=== PATIENT | male | born 1985 | race Caucasian/White ===

== ENCOUNTER 2022-12-14 07:57 | Outpatient (CLI) | payer OTHER, SELFPAY ==
[2022-12-14 13:51] LABS: Microalbumin Urine 1 mg/dL
[2022-12-14 13:54] LABS: Creatinine Urine 240.7 mg/dL; Microalbumin Creatinine Ratio 0 mg/g (0-30)
[2022-12-14 15:19] LABS: Albumin* 4.3 g/dL (3.3-5.0)
[2022-12-14 15:20] LABS: Chloride* 108 mmol/L (96-114); Potassium* 4.6 mmol/L (3.6-5.1); Sodium* 142 mmol/L (135-149)
[2022-12-14 15:22] LABS: Aspartate Amino Transferase* 28 U/L (12-35); Bilirubin Total* 0.6 mg/dL (0.1-1.5); Carbon Dioxide* 28 mmol/L (20-32); Cholesterol* 194 mg/dL (90-199); Estimated Glomerular Filt Rate 99 ml/min; Total Protein* 6.9 g/dL (6.0-8.3)
[2022-12-14 15:23] LABS: Alanine Aminotransferase* 40 U/L (4-50); Alkaline Phosphatase* 81 U/L (40-150); Blood Urea Nitrogen* 15 mg/dL (5-24); Calcium* 9.1 mg/dL (8.4-10.6); Glucose* 82 mg/dL (60-115); Triglycerides* 193 mg/dL (40-149)
[2022-12-14 15:24] LABS: HDL Cholesterol* 42 mg/dL (>=40); LDL Cholesterol Calculated 113 mg/dL (<100)
== END 2022-12-14 07:58 | disposition home or self-care (01) ==
PROVIDERS: PCP Family Medicine; Visit Provider Family Medicine
DX: Z00.00 Encounter for general adult medical examination without abnormal findings (principal); R03.0 Elevated blood-pressure reading, without diagnosis of hypertension; Z13.6 Encounter for screening for cardiovascular disorders
CPT/HCPCS: 80053; 80061; 82043; 82570